=== PATIENT | female | born 1980 | race Caucasian/White ===

== ENCOUNTER 2018-02-18 23:24 | Emergency (ER) | payer MEDICAID ==
[~2018-02-18] VITALS: Ht 157.5 cm; Wt 59.0 kg
[2018-02-19] MEDS ORDERED: IBUPROFEN 400MG TABLET PO ONE (04:30)
[2018-02-19] MEDS ORDERED: TRAMADOL 50MG TABLET PO ONE (04:30)
[2018-02-19 04:44] VITALS: BP 112/66
== END 2018-02-19 04:51 | disposition home or self-care (01) ==
LOC: ER 23:24
DX: R51 Headache (principal); F41.9 Anxiety disorder, unspecified; E05.90 Thyrotoxicosis, unspecified without thyrotoxic crisis or storm
CPT/HCPCS: 99283